=== PATIENT | male | born 1965 | race Caucasian/White ===

== ENCOUNTER → 2016-10-28 | Outpatient (CLI) | payer BC, MEDICAID ==
--- NOTE | 2016-10-29 08:32 | RAD ---
Clinical Indication: Right lower extremity pain and swelling, back surgery 9 weeks ago. Technique: Study is dated October 28, 2016. Grayscale, color flow and spectral waveform analysis was performed of the right lower extremity with and without compression. Findings: There is normal compressibility of all visualized vein segments. No evidence of DVT is present on grayscale or color images. There is normal phasicity of waveform. There is normal augmentation. Impression: No evidence of deep vein thrombosis.
== END | disposition home or self-care (01) ==
LOC: US 15:58
PROVIDERS: ATTEND Physician Assistant
DX: M79.604 Pain in right leg (principal); M79.89 Other specified soft tissue disorders
CPT/HCPCS: 93971

== ENCOUNTER → 2017-06-13 | Outpatient (CLI) | payer MEDICAID, OTHER ==
--- NOTE | 2017-06-14 09:23 | RAD ---
Right hip radiograph 06/13/2017 Indication: Right hip pain. Comparison: None available. Technique: 2 views of the right hip are provided. Findings: Joint spaces are maintained. Bone mineralization is within normal limits. Sclerotic density in the femoral neck is favored to represent a bone island. No lytic or blastic osseous lesion is identified. No acute fracture is identified. No significant soft tissue abnormality is noted. Impression: No acute fracture or dislocation.
--- NOTE | 2017-06-14 09:27 | RAD ---
Sacrum and coccyx radiograph 06/13/2017 Indication: Right hip pain and coccygeal pain Comparison: None available. Technique: 4 views of the sacrum and coccyx are provided. Findings: Mild disc height loss involving L5-S1 with [id number] facet arthropathy. The sacral makenna are intact. Mild joint space narrowing involving the sacroiliac joints with minimal osteophytosis. Pelvis appears intact. No acute fracture or dislocation is identified. Impression: No acute fracture or dislocation. If symptoms persist, evaluation with cross-sectional imaging may be of benefit.
== END | disposition home or self-care (01) ==
LOC: DXRAD 16:06
PROVIDERS: ATTEND Physician Assistant
DX: M53.3 Sacrococcygeal disorders, not elsewhere classified (principal); M25.551 Pain in right hip
CPT/HCPCS: 72220; 73502

== ENCOUNTER → 2017-10-24 | Outpatient (CLI) | payer OTHER ==
--- NOTE | 2017-10-24 12:49 | RAD ---
Clinical Indication: Right lower extremity pain for one day Technique: Study is dated October 24, 2017. Grayscale, color flow and spectral waveform analysis was performed of the right lower extremity with and without compression. Findings: There is normal compressibility of all visualized vein segments. No evidence of DVT is present on grayscale or color images. There is normal phasicity of waveform. There is normal augmentation. Impression: No evidence of deep vein thrombosis. Electronically signed by: Lan Reid MD (10/24/2017 12:46 PM) [id number]
== END | disposition home or self-care (01) ==
LOC: US 11:12
PROVIDERS: ATTEND Physician Assistant
DX: M79.89 Other specified soft tissue disorders (principal); M79.604 Pain in right leg
CPT/HCPCS: 93971

== ENCOUNTER 2020-05-20 19:29 | Emergency (ER) | payer BC, OTHER ==
[~2020-05-20] VITALS: Ht 193 cm; Wt 109.0 kg
--- NOTE | 2020-05-20 19:32 | PHYS DOC ---
Past History Past Medical History: Arthritis General Adult HPI: HPI: ".. I was putting in a door.. and was stew arched backwards.. and was hammering over my head.. and I stew twiisted my back.. " Patient is a 65 year old massle who presents with above hx and complaints of back injury. Patient has history of previous back surgeries one approximately 26 months ago and then again 14 months ago. Patient follows at [facility] for his care. Patient does have muscle relaxers which he takes chronically for back spasms. Patient also follows with [facility] as a primary care. No recent travel outside the [place] area. No specific ill contacts. Patient has been able to defecate and urinate since that injury. Patient localizes pain and upper right trapezius and his paralumbar muscles. Patient is amatory without problems. No history of fever or chills. I Review of Systems: Review of Systems: Constitutional: Denies fever or chills Eyes: Denies change in visual acuity HENT: Denies nasal congestion or sore throat Respiratory: Denies cough or shortness of breath Cardiovascular: Denies chest pain or edema GI: Denies abdominal pain, nausea, vomiting, bloody stools or diarrhea : Denies dysuria Musculoskeletal: Complains of right trapezius and lumbar sacral pain Integument: Denies rash Neurologic: Denies headache, focal weakness or sensory changes Endocrine: Denies polyuria or polydipsia Lymphatic: Denies swollen glands Psychiatric: Denies depression or anxiety Family History: Family History: Noncontributory to presentation Current Medications: Current Meds: See nursing for home medications Allergies: Allergies: No known drug allergies Physical Exam: PE: Constitutional: Moderate acute distress, non-toxic appearance. [] HENT: Normocephalic, atraumatic, bilateral external ears normal, oropharynx mo ist, no oral exudates, nose normal. [] Eyes: PERRLA, EOMI, conjunctiva normal, no discharge. Glasses Neck: Normal range of motion, no tenderness, supple, no stridor. [] Cardiovascular:Heart rate regular rhythm, no murmur [] Lungs & Thorax: Bilateral breath sounds equal at apex on auscultation [] Abdomen: Bowel sounds normal, soft, no tenderness, no masses, no pulsatile masses. Obese. Skin: Warm, dry, no erythema, no rash. [] Back: No tenderness, no CVA tenderness. Right trapezius muscle spasm. Paralumbar muscle spasms noted. Old surgical scars. Extremities: No tenderness, no cyanosis, no clubbing, ROM intact, no edema. [] Neurologic: Alert and oriented X 3, normal motor function, normal sensory function, no focal deficits noted. DTRs +2 patella and brachial. 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 Psychologic: Affect anxious, judgement normal, mood normal. [] EKG: EKG: [] Radiology/Procedures: Radiology/Procedures: Patient declines radiographic evaluation at this time-states he will follow with his neurosurgeon [] Heart Score: Risk Factors: Risk Factors: DM, Current or recent (<one month) smoker, HTN, HLP, family history of CAD, obesity. Risk Scores: Score 0 - 3: 2.5% MACE over next 6 weeks - Discharge Home Score 4 - 6: 20.3% MACE over next 6 weeks - Admit for Clinical Observation Score 7 - 10: 72.7% MACE over next 6 weeks - Early Invasive Strategies Course & Med Decision Making: Course & Med Decision Making Pertinent Labs and Imaging studies reviewed. (See chart for details) Patient take meds as previous directed. Use ice packs as needed. May add Vicoprofen up to 4 times a day for marked discomfort. Further narcotics must be filled by surgeon or primary care. Must follow-up Impression: 1. History of chronic back pain 2. Muscle strain right trapezius and lumbar sacral [] Dragon Disclaimer: Dragon Disclaimer: This electronic medical record was generated, in whole or in part, using a voice recognition dictation system. Departure Departure: Referrals: JOSÉ ROMERO (PCP) Scripts Hydrocodone/Ibuprofen (HYDROCODONE-IBUPROFEN 7.5-200 ) 1 Each Tablet 1 TAB PO PRN Q6HRS PRN for PAIN, #30 TAB 0 Refills Prov: JASON MCKEON MD 05/20/20 Hydrocodone/Ibuprofen (HYDROCODONE-IBUPROFEN 7.5-200 ) 1 Each Tablet 1 TAB PO PRN Q6HRS PRN for PAIN, #30 TAB 0 Refills Prov: JASON MCKEON MD 05/20/20 Hydrocodone/Ibuprofen (HYDROCODONE-IBUPROFEN 7.5-200 ) 1 Each Tablet 1 TAB PO PRN Q6HRS PRN for PAIN, #30 TAB 0 Refills Prov: JASON MCKEON MD 05/20/20 Nicky Disclaimer This chart was dictated in whole or in part using Voice Recognition software in a busy, high-work load, and often noisy Emergency Department environment. It may contain unintended and wholly unrecognized errors or omissions. JASON MCKEON MD May 20, 2020 19:32
[2020-05-20] MEDS ORDERED: HYDR-1179 PO ×3 (19:56→20:57)
[2020-05-20] MEDS: ORPHENADRINE CITRATE 60 MG/2 ML VIAL. IM ONE (20:22)
[2020-05-20] MEDS: methylPREDNISolone ACETATE 40 MG/ML VIAL. IM ONE (20:23)
[2020-05-20] MEDS: MORPHINE SULFATE 10 MG/ML SYRINGE. SQ ONE (20:23)
[2020-05-20] MEDS: KETOROLAC 60 MG/2 ML VIAL. IM ONE (20:23)
[2020-05-20 20:55] VITALS: BP 138/96
== END 2020-05-20 20:55 | disposition home or self-care (01) ==
LOC: ER 19:29
DX: S39.012A Strain of muscle, fascia and tendon of lower back, initial encounter (principal); S29.012A Strain of muscle and tendon of back wall of thorax, initial encounter; G89.29 Other chronic pain; Z98.890 Other specified postprocedural states; X58.XXXA Exposure to other specified factors, initial encounter; Y93.89 Activity, other specified; Y92.89 Other specified places as the place of occurrence of the external cause; Y99.8 Other external cause status
CPT/HCPCS: 96372; 99284; J1030; J1885; J2270; J2360